=== PATIENT | female | born 1955 | race Two or more races ===

== ENCOUNTER → 2018-06-20 | Day surgery (SDC) | payer OTHER | END | disposition home or self-care (01) | LOC: ADM 06-13 14:00 → AMB-ENDOS 10:24 | DX: D12.3 Benign neoplasm of transverse colon (principal); K57.30 Diverticulosis of large intestine without perforation or abscess without bleeding; K64.1 Second degree hemorrhoids ==

== ENCOUNTER → 2020-01-29 | Day surgery (SDC) | payer OTHER | END | disposition home or self-care (01) | LOC: ADM 01-22 12:15 → AMB-ENDOS 12:15 | PROVIDERS: ATTEND Colon & Rectal Surgery | DX: K63.5 Polyp of colon (principal); K64.2 Third degree hemorrhoids; Z20.828 Contact with and (suspected) exposure to other viral communicable diseases ==